=== PATIENT | male | born 1980 | race Caucasian/White ===

== ENCOUNTER 2016-06-20 18:37 | Emergency (ER) | payer SELFPAY ==
--- NOTE | 2016-06-21 19:43 | ER ---
ADMIT: 06/20/2016 RM/LOC: ER [facility] MR#: [id number] [address] [address] [place] [address] Emergency Room Report SEX: M AGE: 35 : 1980 DATE: 06/20/2016 TIME: 1837 hours. Please refer to my T-sheet for complete H and P. HISTORY OF PRESENT ILLNESS: Briefly, the patient is a 35-year-old, who comes in with chest pain, 2 to 3 months in his left arm, seems to coming from his neck, rates it 8/10. Denies any specific trauma. He does may be feel a little short of breath. He does smoke a 3rd pack a day. He states he has not really taken anything for it. Wanted evaluation. PHYSICAL EXAMINATION: VITAL SIGNS: His blood pressure 146/86, pulse 83, respirations 18, temp 97.8, saturating 98%. GENERAL: No acute distress. HEENT: Tenderness in the left side of his neck, it is occipital, exit, going down towards his shoulder and his anterior chest. He is neurovascularly intact distally, otherwise. EMERGENCY DEPARTMENT COURSE: CT of his head was negative. Chest x-ray, no acute disease. CBC and chemistries normal. Troponin negative. EKG was sinus rhythm, rate of 73, no change. I gave him Ativan 1 p.o. and Toradol 60 IM. His pain was almost completely resolved. He felt much better. I had a long discussion. He was ready for discharge. ASSESSMENT: 1. Atypical chest pain. 2. Neck pain/radiculopathy. 3. Nicotine abuse. PLAN: I gave him few Ativan to use p.r.n., prednisone 20 b.i.d. for 5 days. Follow up with Dr. Kowalski, return if worse. Use Tylenol. Massage and stop smoking. Luis Ingram MD/ tammy JOB #: [id number] CC: Abimael Acharya MD, Attending Physician Nabeel Kowalski MD, Family Physician Nabeel Kowalski MD
== END 2016-06-20 20:10 | disposition home or self-care (01) ==
LOC: ER 18:37
DX: R07.89 Other chest pain (principal); M54.12 Radiculopathy, cervical region; F17.210 Nicotine dependence, cigarettes, uncomplicated; Z79.82 Long term (current) use of aspirin